=== PATIENT | male | born 1995 ===

== ENCOUNTER 2019-01-08 20:08 | Emergency (ER) | payer OTHER ==
[2019-01-08] MEDS ORDERED: Mupirocin 2% OINT* TUBE TOPICAL ONE (20:40)
--- NOTE | 2019-01-08 20:40 | UC ---
Skin Complaint HPI - HPI Summary HPI Summary: 23-year-old male comes in with a chief complaint of left hand burn. Just prior to arrival he grabbed a hot goodman. The burn is on the palmar surface of the left palm and fingers. He does have several blisters. None of the blisters are broken open. He reports he does have sensation except on top of the blisters. He is able to move his fingers and his hand but with pain. Reports his last tetanus was February 2018. Cold helps decrease the pain. - History of Current Complaint Chief Complaint: UCBurn Time Seen by Provider: 01/08/19 20:27 Stated Complaint: BURN Pain Intensity: 7 - Allergy/Home Medications Allergies/Adverse Reactions: Allergies Allergy/AdvReac Type Severity Reaction Status Date / Time No Known Allergies Allergy Verified 01/08/19 20:21 PMH/Surg Hx/FS Hx/Imm Hx Previously Healthy: Yes - Surgical History Surgical History: None - Family History Known Family History: Positive: Non-Contributory - Social History Alcohol Use: Daily Substance Use Type: Marijuana Substance Use Comment - Amount & Last Used: weekly Smoking Status (MU): Never Smoked Tobacco Review of Systems All Other Systems Reviewed And Are Negative: Yes Constitutional: Positive: Negative Skin: Positive: Other - SEE HPI Eyes: Positive: Negative ENT: Positive: Negative Respiratory: Positive: Negative Cardiovascular: Positive: Negative Gastrointestinal: Positive: Negative Motor: Positive: Negative Neurovascular: Positive: Negative Musculoskeletal: Positive: Negative Neurological: Positive: Negative Psychological: Positive: Negative Is Patient Immunocompromised?: No Physical Exam Triage Information Reviewed: Yes Appearance: Well-Appearing, No Pain Distress, Well-Nourished Vital Signs: Initial Vital Signs Temp 98.7 F 01/08/19 20:16 Pulse 89 01/08/19 20:16 Resp 16 01/08/19 20:16 BP 157/103 01/08/19 20:16 Pulse Ox 98 01/08/19 20:16 Vital Signs Reviewed: Yes Eye Exam: Normal Eyes: Positive: Conjunctiva Clear Neck exam: Normal Neck: Positive: Supple Respiratory: Positive: No respiratory distress Musculoskeletal Exam: Normal Musculoskeletal: Positive: Strength Intact, ROM Intact Neurological Exam: Normal Neurological: Positive: Alert, Muscle Tone Normal Psychological Exam: Normal Psychological: Positive: Age Appropriate Behavior Skin: Positive: Other - Left hand palm has diffuse first-degree burn erythema. There is a 3 cm x 1 cm blister in the center the palm. On the fingers there are several 1 cm diameter blisters also on a piece of first-degree burn erythema. He has normal sensation in the erythema areas. Over the blister there is some decreased sensation. Normal capillary refill. There are no circumferential foster. All the foster are on the palmar surface. Course/Dx - Course Course Of Treatment: Anabiotic ointment mupirocin was placed on the foster and dressings applied. Patient is up-to-date on his tetanus. The worst part of the foster are second degree. The overall plan is to keep antibiotic ointment on it and have the patient follow-up with orthopedic hand specialist. There are no circumferential foster and the most serious burn is second-degree I do not appreciate any third degree burn. For pain the patient also plans to take ibuprofen as needed and keep it cool. - Diagnoses Provider Diagnosis: Burn of left hand including fingers Discharge - Sign-Out/Discharge Documenting (check all that apply): Patient Departure All imaging exams completed and their final reports reviewed: No Studies - Discharge Plan Condition: Stable Disposition: HOME Prescriptions: Mupirocin 1 applic TOPICAL BID #[id number] Patient Education Materials: Second Degree Burn (ED) Referrals: Gulshan Ruelas MD [Medical Doctor] - Additional Instructions: FOLLOW UP WITH THE ORTHOPEDIC HAND SPECIALIST. GET RECHECKED FOR ANY WORSENING OF YOUR CONDITION OR QUESTIONS OR CONCERNS. - Billing Disposition and Condition Condition: STABLE Disposition: Home
== END 2019-01-08 20:55 | disposition home or self-care (01) ==
LOC: UCEAST 20:08
DX: T23.252A Burn of second degree of left palm, initial encounter (principal); T23.232A Burn of second degree of multiple left fingers (nail), not including thumb, initial encounter; X19.XXXA Contact with other heat and hot substances, initial encounter; Y92.9 Unspecified place or not applicable
CPT/HCPCS: 16000; 16020; 99203; G0463